=== PATIENT | female | born 1980 | race Caucasian/White ===

== ENCOUNTER 2016-12-30 21:41 | Emergency (ER) | END 2016-12-30 22:59 | disposition home or self-care (01) | DX: G51.0 Bell's palsy (principal); M94.0 Chondrocostal junction syndrome [Tietze]; R40.2412 Glasgow coma scale score 13-15, at arrival to emergency department ==

== ENCOUNTER 2017-04-14 11:08 | Emergency (ER) | payer BC ==
[~2017-04-14] VITALS: Ht 157.5 cm; Wt 100.0 kg
[~2017-04-14 11:08] MED LIST: ACYC800T PO; IBUP-1542 PO; PRED10TA PO; UDROBDM PO
[2017-04-14 11:10] VITALS: Ht 157.5 cm; Wt 100.0 kg
--- NOTE | 2017-04-14 11:48 | ERD ---
ER Documentation Chief Complaint Chief Complaint facial tingling starting yesterday; pt feeling anxious HPI 37y/o male patient with significant medical history,presents to the emergency department c/o facial tingling, palpitations, difficulty breathing and extreme anxiety for the last week. The patient states that she has been under a lot of stress at work and has not been able to exercise. Denies chest pain, fever, chills, N/V/D. Positive history of previous episodes my last episode more than 1 year ago. Treatment attempted: None ROS SYSTEMIC symptoms: no fever, chills, no night sweats, no weight loss EYE symptoms: No blurred vision, no eye discharge OTOLARYNGEAL symptoms: No hearing loss. No ear pain, no sore throat CARDIOVASCULAR symptoms: No chest pain or discomfort, no palpitations. PULMONARY symptoms: No dyspnea, no cough, no wheezing. GASTROINTESTINAL symptoms: No abdominal pain, no nausea, no vomiting, no diarrhea MUSCULOSKELETAL symptoms: No arthralgias, no muscle aches. NEUROLOGY symptoms: No confusion, no syncope, + numbness +tingling. SKIN no rashes All systems reviewed and are negative except as per history of present illness. Medications Home Meds Active Scripts Alprazolam* (Alprazolam*) 0.25 Mg Tablet, 0.25 MG PO TID Y for ANXIETY, #12 TAB Prov:TAI MALIK MD 04/14/17 Acyclovir* (Acyclovir*) 800 Mg Tablet, 800 MG PO 5 TIMES DAILY for 5 Days, TAB Prov:NATHALY JENKINS NP 12/30/16 Prednisone* (Prednisone*) 10 Mg Tab, 60 MG PO DAILY for 10 Days, #40 TAB Take 6 tabs daily x 5 days, then taper: 5 tabs on day 6 4 tabs on day 7 3 tabs on day 8 2 tabs on day 9 1 tab on day 10 Prov:NATHALY JENKINS NP 12/30/16 Ibuprofen* (Motrin*) 600 Mg Tab, 600 MG PO Q6H Y for PAIN AND OR ELEVATED TEMP, #30 TAB Prov:NATHALY JENKINS NP 12/30/16 Guaifenesin-Dextromethorphan* (Robitussin* DM) 100MG/10MG/5ML Syrup, 5 ML PO Q6H Y for COUGH, #120 ML 0 Refills Prov:BAOBEVERLY BILLY 09/27/15 Allergies Allergies: Coded Allergies: No Known Drug Allergy (Unverified Allergy, Unknown, 04/14/17) PMhx/Soc Denies history of DM, HTN, CAD History of Surgery: Yes () Anesthesia Reaction: No Hx Neurological Disorder: No Hx Respiratory Disorders: No Hx Cardiac Disorders: No Hx Psychiatric Problems: No Hx Miscellaneous Medical Probl: No Hx Alcohol Use: No Hx Substance Use: No Hx Tobacco Use: No Smoking Status: Never smoker FmHx Mother with DM and HTN Physical Exam Vitals Vital Signs Date Time Temp Pulse Resp B/P Pulse Ox O2 Delivery O2 Flow Rate FiO2 04/14/17 11:10 97.8 70 18 126/75 97 Physical Exam Patient is in mild distress, she is crying, and looks very anxious, vital signs stable. Alert and fully oriented. EYES: PERRLA, EOMI, Sclera and conjunctiva appear normal. EARS: Canals clear, tympanic membranes WNL THROAT: Normal oropharynx. NECK: Supple, No lymphadenopathy. Full ROM without pain or tenderness. HEART: RRR, no rubs, murmurs, clicks or gallops. LUNGS: Clear to auscultation. ABDOMEN: Soft, non-tender without masses or hepatosplenomegaly. EXTREMITIES: No edema bilaterally. Neuro: Grossly intact, neuro and sensory exam unremarkable Procedures/MDM 37y/o female patient remote history of anxiety, presents to the ED c/o tingling , difficulty sleeping, palpitations that are getting worse progressively during the last 8 days. Vital signs stable, Physical exam unremarkable, neurovascular exam intact. Differential diagnosis include but not limited to: Thyroid disease , electrolyte imbalance, autoimmune disorder, bipolar disease. Low suspicion for stroke, acute coronary event. Physical examination and clinical presentation consistent most likely with anxiety. During the ED course the patient remained stable with no new complaints, therefore the patient can be managed outpatient Results and clinical impression discussed with patient who agrees with management. The patient will be discharged home with a Rx for alprazolam and recommendations for exercise, therapy and follow-up with her primary doctor If symptoms persist, worsen or new symptoms develop, then patient is instructed to follow-up with the primary care provider. If the patient is unable to see the primary care provider, then return to the ED immediately. Departure Diagnosis: Primary Impression: Anxiety Additional Impression: Stressful job Condition: Stable Additional Instructions: Muchas leyda por [facility] para yeung servicio. Esperamos que en yeung visita a la sunny de emergencia yeung problema medico haya sido solucionado y que se sienta mucho mejor. Para estar seguros que yeung mejoria sigue en proceso, le pedimos el favor de hacer belen mayuri de seguimiento medico con yeung doctor primario en los proximos 2-4 dooley. Lleve con usted estos documentos y las medicinas recetadas. Si kurt sintomas empeoran y no puede aba a yeung doctor, por favor regrese a sunny de emergencia. En byron que usted no tenga un mdico de atencin primaria: Llame al mdico o clnica comunitaria de referencia que aparece abajo lois las horas de consultorio para hacer belen mayuri para que le vean. CLINICAS: [facility] [phone] [facility] [phone] [address] [facility]. [facility] [phone] [facility]. [facility] [phone] [facility] [phone] [address] [facility]. [phone] MD Apr 14, 2017 11:48 TAI MALIK MD Apr 14, 2017 11:48
--- NOTE | 2017-04-14 11:48 | ERD ---
ER Documentation Chief Complaint Chief Complaint facial tingling starting yesterday; pt feeling anxious HPI 37y/o male patient with significant medical history,presents to the emergency department c/o facial tingling, palpitations, difficulty breathing and extreme anxiety for the last week. The patient states that she has been under a lot of stress at work and has not been able to exercise. Denies chest pain, fever, chills, N/V/D. Positive history of previous episodes my last episode more than 1 year ago. Treatment attempted: None ROS SYSTEMIC symptoms: no fever, chills, no night sweats, no weight loss EYE symptoms: No blurred vision, no eye discharge OTOLARYNGEAL symptoms: No hearing loss. No ear pain, no sore throat CARDIOVASCULAR symptoms: No chest pain or discomfort, no palpitations. PULMONARY symptoms: No dyspnea, no cough, no wheezing. GASTROINTESTINAL symptoms: No abdominal pain, no nausea, no vomiting, no diarrhea MUSCULOSKELETAL symptoms: No arthralgias, no muscle aches. NEUROLOGY symptoms: No confusion, no syncope, + numbness +tingling. SKIN no rashes All systems reviewed and are negative except as per history of present illness. Medications Home Meds Active Scripts Alprazolam* (Alprazolam*) 0.25 Mg Tablet, 0.25 MG PO TID Y for ANXIETY, #12 TAB Prov:TAI MALIK MD 04/14/17 Acyclovir* (Acyclovir*) 800 Mg Tablet, 800 MG PO 5 TIMES DAILY for 5 Days, TAB Prov:NATHALY JENKINS NP 12/30/16 Prednisone* (Prednisone*) 10 Mg Tab, 60 MG PO DAILY for 10 Days, #40 TAB Take 6 tabs daily x 5 days, then taper: 5 tabs on day 6 4 tabs on day 7 3 tabs on day 8 2 tabs on day 9 1 tab on day 10 Prov:NATHALY JENKINS NP 12/30/16 Ibuprofen* (Motrin*) 600 Mg Tab, 600 MG PO Q6H Y for PAIN AND OR ELEVATED TEMP, #30 TAB Prov:NATHALY JENKINS NP 12/30/16 Guaifenesin-Dextromethorphan* (Robitussin* DM) 100MG/10MG/5ML Syrup, 5 ML PO Q6H Y for COUGH, #120 ML 0 Refills Prov:BAOBEVERLY BILLY 09/27/15 Allergies Allergies: Coded Allergies: No Known Drug Allergy (Unverified Allergy, Unknown, 04/14/17) PMhx/Soc Denies history of DM, HTN, CAD History of Surgery: Yes () Anesthesia Reaction: No Hx Neurological Disorder: No Hx Respiratory Disorders: No Hx Cardiac Disorders: No Hx Psychiatric Problems: No Hx Miscellaneous Medical Probl: No Hx Alcohol Use: No Hx Substance Use: No Hx Tobacco Use: No Smoking Status: Never smoker FmHx Mother with DM and HTN Physical Exam Vitals Vital Signs Date Time Temp Pulse Resp B/P Pulse Ox O2 Delivery O2 Flow Rate FiO2 04/14/17 11:10 97.8 70 18 126/75 97 Physical Exam Patient is in mild distress, she is crying, and looks very anxious, vital signs stable. Alert and fully oriented. EYES: PERRLA, EOMI, Sclera and conjunctiva appear normal. EARS: Canals clear, tympanic membranes WNL THROAT: Normal oropharynx. NECK: Supple, No lymphadenopathy. Full ROM without pain or tenderness. HEART: RRR, no rubs, murmurs, clicks or gallops. LUNGS: Clear to auscultation. ABDOMEN: Soft, non-tender without masses or hepatosplenomegaly. EXTREMITIES: No edema bilaterally. Neuro: Grossly intact, neuro and sensory exam unremarkable Procedures/MDM 37y/o female patient remote history of anxiety, presents to the ED c/o tingling , difficulty sleeping, palpitations that are getting worse progressively during the last 8 days. Vital signs stable, Physical exam unremarkable, neurovascular exam intact. Differential diagnosis include but not limited to: Thyroid disease , electrolyte imbalance, autoimmune disorder, bipolar disease. Low suspicion for stroke, acute coronary event. Physical examination and clinical presentation consistent most likely with anxiety. During the ED course the patient remained stable with no new complaints, therefore the patient can be managed outpatient Results and clinical impression discussed with patient who agrees with management. The patient will be discharged home with a Rx for alprazolam and recommendations for exercise, therapy and follow-up with her primary doctor If symptoms persist, worsen or new symptoms develop, then patient is instructed to follow-up with the primary care provider. If the patient is unable to see the primary care provider, then return to the ED immediately. Departure Diagnosis: Primary Impression: Anxiety Additional Impression: Stressful job Condition: Stable Additional Instructions: Muchas leyda por [facility] para yeung servicio. Esperamos que en yeung visita a la sunny de emergencia yeung problema medico haya sido solucionado y que se sienta mucho mejor. Para estar seguros que yeung mejoria sigue en proceso, le pedimos el favor de hacer belen mayuri de seguimiento medico con yeung doctor primario en los proximos 2-4 dooley. Lleve con usted estos documentos y las medicinas recetadas. Si kurt sintomas empeoran y no puede aba a yeung doctor, por favor regrese a sunny de emergencia. En byron que usted no tenga un mdico de atencin primaria: Llame al mdico o clnica comunitaria de referencia que aparece abajo lois las horas de consultorio para hacer belen mayuri para que le vean. CLINICAS: [facility] [phone] [facility] [phone] [address] [facility]. [facility] [phone] [facility] [facility] [phone] [facility] [phone] [address] [facility]. [phone] MD Apr 14, 2017 11:48 TAI MALIK MD Apr 14, 2017 11:48
--- NOTE | 2017-04-14 11:48 | ERD ---
ER Documentation Chief Complaint Chief Complaint facial tingling starting yesterday; pt feeling anxious HPI 37y/o male patient with significant medical history,presents to the emergency department c/o facial tingling, palpitations, difficulty breathing and extreme anxiety for the last week. The patient states that she has been under a lot of stress at work and has not been able to exercise. Denies chest pain, fever, chills, N/V/D. Positive history of previous episodes my last episode more than 1 year ago. Treatment attempted: None ROS SYSTEMIC symptoms: no fever, chills, no night sweats, no weight loss EYE symptoms: No blurred vision, no eye discharge OTOLARYNGEAL symptoms: No hearing loss. No ear pain, no sore throat CARDIOVASCULAR symptoms: No chest pain or discomfort, no palpitations. PULMONARY symptoms: No dyspnea, no cough, no wheezing. GASTROINTESTINAL symptoms: No abdominal pain, no nausea, no vomiting, no diarrhea MUSCULOSKELETAL symptoms: No arthralgias, no muscle aches. NEUROLOGY symptoms: No confusion, no syncope, + numbness +tingling. SKIN no rashes All systems reviewed and are negative except as per history of present illness. Medications Home Meds Active Scripts Alprazolam* (Alprazolam*) 0.25 Mg Tablet, 0.25 MG PO TID Y for ANXIETY, #12 TAB Prov:TAI MALIK MD 04/14/17 Acyclovir* (Acyclovir*) 800 Mg Tablet, 800 MG PO 5 TIMES DAILY for 5 Days, TAB Prov:NATHALY JENKINS NP 12/30/16 Prednisone* (Prednisone*) 10 Mg Tab, 60 MG PO DAILY for 10 Days, #40 TAB Take 6 tabs daily x 5 days, then taper: 5 tabs on day 6 4 tabs on day 7 3 tabs on day 8 2 tabs on day 9 1 tab on day 10 Prov:NATHALY JENKINS NP 12/30/16 Ibuprofen* (Motrin*) 600 Mg Tab, 600 MG PO Q6H Y for PAIN AND OR ELEVATED TEMP, #30 TAB Prov:NATHALY JENKINS NP 12/30/16 Guaifenesin-Dextromethorphan* (Robitussin* DM) 100MG/10MG/5ML Syrup, 5 ML PO Q6H Y for COUGH, #120 ML 0 Refills Prov:BAOBEVERLY BILLY 09/27/15 Allergies Allergies: Coded Allergies: No Known Drug Allergy (Unverified Allergy, Unknown, 04/14/17) PMhx/Soc Denies history of DM, HTN, CAD History of Surgery: Yes () Anesthesia Reaction: No Hx Neurological Disorder: No Hx Respiratory Disorders: No Hx Cardiac Disorders: No Hx Psychiatric Problems: No Hx Miscellaneous Medical Probl: No Hx Alcohol Use: No Hx Substance Use: No Hx Tobacco Use: No Smoking Status: Never smoker FmHx Mother with DM and HTN Physical Exam Vitals Vital Signs Date Time Temp Pulse Resp B/P Pulse Ox O2 Delivery O2 Flow Rate FiO2 04/14/17 11:10 97.8 70 18 126/75 97 Physical Exam Patient is in mild distress, she is crying, and looks very anxious, vital signs stable. Alert and fully oriented. EYES: PERRLA, EOMI, Sclera and conjunctiva appear normal. EARS: Canals clear, tympanic membranes WNL THROAT: Normal oropharynx. NECK: Supple, No lymphadenopathy. Full ROM without pain or tenderness. HEART: RRR, no rubs, murmurs, clicks or gallops. LUNGS: Clear to auscultation. ABDOMEN: Soft, non-tender without masses or hepatosplenomegaly. EXTREMITIES: No edema bilaterally. Neuro: Grossly intact, neuro and sensory exam unremarkable Procedures/MDM 37y/o female patient remote history of anxiety, presents to the ED c/o tingling , difficulty sleeping, palpitations that are getting worse progressively during the last 8 days. Vital signs stable, Physical exam unremarkable, neurovascular exam intact. Differential diagnosis include but not limited to: Thyroid disease , electrolyte imbalance, autoimmune disorder, bipolar disease. Low suspicion for stroke, acute coronary event. Physical examination and clinical presentation consistent most likely with anxiety. During the ED course the patient remained stable with no new complaints, therefore the patient can be managed outpatient Results and clinical impression discussed with patient who agrees with management. The patient will be discharged home with a Rx for alprazolam and recommendations for exercise, therapy and follow-up with her primary doctor If symptoms persist, worsen or new symptoms develop, then patient is instructed to follow-up with the primary care provider. If the patient is unable to see the primary care provider, then return to the ED immediately. Departure Diagnosis: Primary Impression: Anxiety Additional Impression: Stressful job Condition: Stable Additional Instructions: Muchas leyad por [facility] para yeung servicio. Esperamos que en yeung visita a la sunny de emergencia yeung problema medico haya sido solucionado y que se sienta mucho mejor. Para estar seguros que yeung mejoria sigue en proceso, le pedimos el favor de hacer belen mayuri de seguimiento medico con yeung doctor primario en los proximos 2-4 dooley. Lleve con usted estos documentos y las medicinas recetadas. Si kurt sintomas empeoran y no puede aba a yeung doctor, por favor regrese a sunny de emergencia. En byron que usted no tenga un mdico de atencin primaria: Llame al mdico o clnica comunitaria de referencia que aparece abajo lois las horas de consultorio para hacer belen mayuri para que le vean. CLINICAS: [facility] [phone] [facility] [phone] [address] [facility] [facility] [phone] [address] [facility]. [facility] [phone] [phone] [address] [facility]. [phone] MD Apr 14, 2017 11:48 TAI MALIK MD Apr 14, 2017 11:48
[2017-04-14] MEDS ORDERED: ALPR0.254 PO (12:32)
== END 2017-04-14 12:42 | disposition home or self-care (01) ==
LOC: FTE 11:08
DX: F41.9 Anxiety disorder, unspecified (principal); F43.9 Reaction to severe stress, unspecified
CPT/HCPCS: 99283

== ENCOUNTER 2017-06-10 19:32 | Emergency (ER) | END 2017-06-11 00:52 | disposition home or self-care (01) ==

== ENCOUNTER 2017-12-09 23:00 | Emergency (ER) | END 2017-12-10 02:48 | disposition home or self-care (01) ==

== ENCOUNTER 2018-05-06 10:27 | Emergency (ER) | END 2018-05-06 11:25 | disposition home or self-care (01) ==

== ENCOUNTER 2018-07-29 11:07 | Emergency (ER) | payer BC ==
[~2018-07-29] VITALS: Ht 160 cm; Wt 108.1 kg
[~2018-07-29 11:07] MED LIST changes: +ALPR0.254 PO; +AMOX500C2 PO; +GUAI5SYR2 PO; +LORA10TA3 PO; +NAPR-985 PO; +PRED20TA PO; -UDROBDM PO
[2018-07-29 12:43] VITALS: Ht 160 cm; Wt 108.1 kg
--- NOTE | 2018-07-29 15:55 | ERD ---
ER Documentation Chief Complaint Chief Complaint high BP at MD clinic; nausea, lighthead, bone+nerve pains since Sun. HPI 38-year-old female history of fibromyalgia presents to the ED stating that she was sent here by her primary care physician today. States that she had exacerbation in her fibromyalgia since Thursday. Patient states that she received an epidural today and at that time she felt nauseous and lightheaded, her blood pressure was checked at the clinic and it was 148/108 therefore her PMD sent her here for evaluation. Patient complains of body pain rating it moderate in severity. Denies headache, vision changes ROS All systems reviewed and are negative except as per history of present illness. Medications Home Meds Active Scripts Ibuprofen* (Motrin*) 600 Mg Tab, 600 MG PO Q8, #15 TAB Prov:TAI MALIK MD 05/06/18 Loratadine* (Loratadine*) 10 Mg Tablet, 10 MG PO DAILY, #10 TAB Prov:TAI MALIK MD 05/06/18 Prednisone* (Prednisone*) 20 Mg Tab, 40 MG PO DAILY for 4 Days, TAB Prov:TAI MALIK MD 05/06/18 Amoxicillin* (Amoxicillin*) 500 Mg Cap, 500 MG PO TID for 7 Days, CAP Prov:TAI MALIK MD 05/06/18 Naproxen* (Naprosyn*) 500 Mg Tablet, 500 MG PO BID PRN for PAIN AND/OR INFLAMMATION, #30 TAB Prov:ANAID SORTO PA-C 12/10/17 Ibuprofen* (Motrin*) 600 Mg Tab, 600 MG PO Q6H PRN for PAIN AND OR ELEVATED TEMP, #30 TAB Prov:RIRI PRICE PA-C 06/11/17 Alprazolam* (Alprazolam*) 0.25 Mg Tablet, 0.25 MG PO TID PRN for ANXIETY, #12 TAB Prov:TAI MALIK MD 04/14/17 Acyclovir* (Acyclovir*) 800 Mg Tablet, 800 MG PO 5 TIMES DAILY for 5 Days, TAB Prov:NATHALY JENKINS NP 12/30/16 Prednisone* (Prednisone*) 10 Mg Tab, 60 MG PO DAILY for 10 Days, #40 TAB Take 6 tabs daily x 5 days, then taper: 5 tabs on day 6 4 tabs on day 7 3 tabs on day 8 2 tabs on day 9 1 tab on day 10 Prov:GREGORYNATHALYXI Villarreal NP 12/30/16 Ibuprofen* (Motrin*) 600 Mg Tab, 600 MG PO Q6H PRN for PAIN AND OR ELEVATED TE MP, #30 TAB Prov:NATHALY JENKINS. ROSA 12/30/16 Guaifenesin-Dextromethorphan* (Robitussin* DM) 100MG/10MG/5ML Syrup, 5 ML PO Q6H PRN for COUGH, #120 ML 0 Refills Prov:BEVERLY GORE PA-C 09/27/15 Allergies Allergies: Coded Allergies: No Known Drug Allergy (Unverified Allergy, Unknown, 04/14/17) PMhx/Soc History of Surgery: Yes () Anesthesia Reaction: No Hx Neurological Disorder: No Hx Respiratory Disorders: No Hx Cardiac Disorders: No Hx Psychiatric Problems: No Hx Miscellaneous Medical Probl: No Hx Alcohol Use: No Hx Substance Use: No Hx Tobacco Use: No Physical Exam Vitals Vital Signs Date Temp Pulse Resp B/P (MAP) Pulse Ox O2 O2 Flow FiO2 Time Delivery Rate 07/29/18 97.7 68 22 136/86 100 12:43 (103) Physical Exam Const: No acute distress Head: Atraumatic Eyes: Normal Conjunctiva ENT: Normal External Ears, Nose and Mouth. Neck: Full range of motion. No meningismus. Resp: Clear to auscultation bilaterally Cardio: Regular rate and rhythm, no murmurs Abd: Soft, non tender, non distended. Normal bowel sounds Skin: No petechiae or rashes Back: No midline or flank tenderness Ext: No cyanosis, or edema Neur: Awake and alert Psych: Normal Mood and Affect Procedures/MDM This is a well-appearing 38-year-old female who has a history of fibromyalgia and received an epidural today. Apparently at the clinic her blood pressure has elevated to 148/108 therefore they have sent her here. In triage patient's blood pressure was stable at 136/86. Patient's blood pressure was elevated (>120/80) but appears stable without evidence of hypertension emergency or urgency. The patient was counseled about the risks of hypertension and urged to pursue outpatient monitoring and therapy within a week with their primary care physician. Departure Diagnosis: Primary Impression: Arthralgia Condition: Stable Patient Instructions: High Blood Pressure (Hypertension), Arthralgia Additional Instructions: FOLLOW UP WITH YOUR PRIMARY CARE PHYSICIAN TOMORROW.Return to this facility if you are not improving as expected. Return to this facility if you are not improving as expected. RIRI PRICE PA-C Jul 29, 2018 15:55
== END 2018-07-29 14:20 | disposition home or self-care (01) ==
LOC: FTE 11:07
DX: M25.50 Pain in unspecified joint (principal)
CPT/HCPCS: 99282

== ENCOUNTER 2019-01-06 09:27 | Day surgery (SDC) | payer BC ==
[~2019-01-06] VITALS: Ht 157.5 cm; Wt 99.1 kg
[2019-01-06] VITALS (13 sets, daily range): BP systolic 108–136; BP diastolic 66–84; PULSE 52–78; RESP 12–24; Ht 157.5 cm; Wt 99.1 kg
[~2019-01-06 09:27] MED LIST changes: +BACL10TA PO; +CEFAZOLIN 2 GM/50 ML (PMX) 50 ML IVPB SCH; +DULO30CA47 PO; +GABA-526 PO; +GABA300C16 PO; +MELO15TA30 PO; +OMEP20CA16 PO; +SOD CHLORIDE 0.9% 1,000 ML IV ONE; +SULI200T3 PO; +TIZA4TAB PO
--- NOTE | 2019-01-06 11:03 | PREAC ---
Date/Time of Note Date/Time of Note DATE: 01/06/19 TIME: 11:02 Anesthesia Eval and Record Evaluation Time Pre-Procedure Interview DATE: 01/06/19 TIME: 11:02 Age 38 Sex female NPO: 8 hrs Preoperative diagnosis cholelithiasis Planned procedure laparoscopic cholecystectomy Past Medical History Past Medical History: Includes Musculoskeletal: Other (fibromyalgia) GI: Morbid obesity Surgery & Anesthesia Issues No known issue Meds Anticoagulation: No Beta Alysia within 24 hr: No Reason Beta Alysia not given: Pt. not on B-Alysia Reported Medications Omeprazole* (Omeprazole*) 20 Mg Capsule.dr, 20 MG PO DAILY, #30 CAP 01/06/19 Tizanidine Hcl* (Tizanidine Hcl*) 4 Mg Tablet, 4 MG PO TID PRN for SPASTICITY, TAB 01/06/19 Baclofen* (Baclofen*) 10 Mg Tablet, 10 MG PO QHS, TAB 01/06/19 Gabapentin* (Gabapentin*) 600 Mg Tablet, 600 MG PO QHS, #60 TAB 01/06/19 Gabapentin* (Gabapentin*) 300 Mg Capsule, 300 MG PO TID, #90 CAP 01/06/19 Sulindac* (Clinoril*) 200 Mg Tablet, 200 MG PO BID, TAB 01/06/19 Duloxetine Hcl* (Duloxetine Hcl*) 30 Mg Capsule.dr, 30 MG PO DAILY, #30 CAP 01/06/19 Meloxicam* (Mobic*) 15 Mg Tablet, 15 MG PO DAILY, #30 TAB 01/06/19 Discontinued Scripts Ibuprofen* (Motrin*) 600 Mg Tab, 600 MG PO Q8, #15 TAB Prov:TAI MALIK MD 05/06/18 Loratadine* (Loratadine*) 10 Mg Tablet, 10 MG PO DAILY, #10 TAB Prov:TAI MALIK MD 05/06/18 Prednisone* (Prednisone*) 20 Mg Tab, 40 MG PO DAILY for 4 Days, TAB Prov:TAI MALIK MD 05/06/18 Amoxicillin* (Amoxicillin*) 500 Mg Cap, 500 MG PO TID for 7 Days, CAP Prov:TAI MALIK MD 05/06/18 Naproxen* (Naprosyn*) 500 Mg Tablet, 500 MG PO BID PRN for PAIN AND/OR INFLAMMATION, #30 TAB Prov:ANAID SORTO PA-C 12/10/17 Ibuprofen* (Motrin*) 600 Mg Tab, 600 MG PO Q6H PRN for PAIN AND OR ELEVATED TEMP, #30 TAB Prov:RIRI PRICE PA-C 06/11/17 Alprazolam* (Alprazolam*) 0.25 Mg Tablet, 0.25 MG PO TID PRN for ANXIETY, #12 TAB Prov:TAI MALIK MD 04/14/17 Acyclovir* (Acyclovir*) 800 Mg Tablet, 800 MG PO 5 TIMES DAILY for 5 Days, TAB Prov:NATHALY JENKINS NP 12/30/16 Prednisone* (Prednisone*) 10 Mg Tab, 60 MG PO DAILY for 10 Days, #40 TAB Take 6 tabs daily x 5 days, then taper: 5 tabs on day 6 4 tabs on day 7 3 tabs on day 8 2 tabs on day 9 1 tab on day 10 Prov:NATHALY JENKINS NP 12/30/16 Ibuprofen* (Motrin*) 600 Mg Tab, 600 MG PO Q6H PRN for PAIN AND OR ELEVATED TEMP, #30 TAB Prov:NATHALY JENKINS NP 12/30/16 Guaifenesin-Dextromethorphan* (Robitussin* DM) 100MG/10MG/5ML Syrup, 5 ML PO Q6H PRN for COUGH, #120 ML 0 Refills Prov:BEVERLY GORE PA-C 09/27/15 Current Medications Cefazolin Sodium/ Dextrose 50 ml @ 100 mls/hr PRE-OP IVPB ; Start 01/06/19 at 09:00; Stop 01/06/19 at 15:00 Sodium Chloride 1,000 ml @ 75 mls/hr [id number] ONCE IV Last administered on 01/06/19at 10:36; Admin Dose 75 MLS/HR; Start 01/06/19 at 09:00; Stop 01/06/19 at 22:19 Meds reviewed: Yes Allergies Coded Allergies: No Known Drug Allergy (Unverified Allergy, Unknown, 01/06/19) Allergies Reviewed: Yes Labs/Studies Labs Reviewed: Reviewed by anesthesiologist Result Diagram: 01/06/19 1033 Laboratory Tests 01/06/19 10:33 test: Negative Pre-procedure Exam Last vitals Vital Signs Date Temp Pulse Resp B/P (MAP) Pulse Ox O2 O2 Flow FiO2 Time Delivery Rate 01/06/19 96.6 68 16 133/84 99 Room Air 10:45 (100) Airway: Adequate mouth opening, Adequate thyromental dist Mallampati: Mallampati II Teeth: Normal Lung: Normal Heart: Normal ASA Physical Status ASA physical status: 2 Emergency: None Planned Anesthetic General/MAC: ETT Planned Pain Management Parenteral pain med Pre-operative Attestations Prior to commencing anesthesia and surgery, the patient was re-evaluated, there was verification of: *The patient's identity *The results of appropriate recent lab work and preoperative vital signs *The above evaluation not changing prior to induction *Anesthetic plan, risk benefits, alternative and complications discussed with patient/family; questions answered; patient/family understands, accepts and wishes to proceed. JENY ELIZALDE Jan 06, 2019 11:03
[2019-01-06] MEDS ORDERED: BUPIVACAINE 0.25% (MPF) 30 ML INJ ONE (11:11)
[2019-01-06] MEDS ORDERED: PROPOFOL 100 ML ONE (11:27)
[2019-01-06] MEDS ORDERED: FENTAnyl 50 MCG/ML VIAL ONE (11:32)
[2019-01-06] MEDS ORDERED: LIDOCAINE 2% (SDV) 5 ML INJ ONE (11:34)
[2019-01-06] MEDS ORDERED: CEFAZOLIN 1 GM INJ ONE (11:40)
[2019-01-06] MEDS ORDERED: DEXAMETHASONE 4 MG/ML 5 ML INJ ONE (11:54)
[2019-01-06] MEDS ORDERED: ONDANSETRON 4 MG INJ ONE ×2 (11:54→12:30)
[2019-01-06] MEDS ORDERED: SUGAMMADEX SODIUM 200 MG/2 ML VIAL IV ONE (12:13)
--- NOTE | 2019-01-06 12:19 | OPR ---
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 She required surgical excision of her gallbladder. Risks alternatives benefits and personal were discussed with the patient. Patient expressed understanding and consents to the operation. Procedure Description Patient is taken to the OR and prepped and draped in usual sterile fashion. Surgical time was performed. IV antibiotics given. Infraumbilical transverse incision was made with a 15 blade. Dissection with cautery skin onto the fascia. The fascia was grasped with Oto's and divided with curved Sheth scissors. 0 Vicryl U stitch was placed into the fascia. [place] trocar is introduced. Pneumoperitoneum was established. Midepigastric 12 mm optical trochars placed under direct visualization. Right upper quadrant upper flank 5 mm optical trochars were placed under direct visualization. Upon initial inspection there is adhesions to the gallbladder. The gallbladder adhesions were taken down bluntly. The gallbladder was grasped with the fundus and retracted and lateral and cephalad direction. [place] graspers were used to dissect out the cystic duct and cystic artery. The critical view was established. The cystic duct appeared thickened and was divided with a laparoscopic 35 mm echelon vessel stapler. The staple line was reinforced with clips. Cystic artery was divided to close proximal clip distal and the division was performed laparoscopic scissors. The gallbladder was taken of the gallbladder bed. Good hemostasis status. The gallbladder was retrieved Endo Catch bag. All ports removed under direct visualization. Overdiuresis tied down. Skin is closed and skin jayant. Therapeutic contains local anesthesia was injected at the incision site. Dry dressings were applied. Gwyn SUMNER Jan 06, 2019 12:19
[2019-01-06] MEDS ORDERED: HYDROCODONE/APAP (5/325) TAB PO ONE (12:30)
--- NOTE | 2019-01-06 12:33 | PAC ---
Date/Time of Note Date/Time of Note DATE: 01/06/19 TIME: 12:32 Post-Anesthesia Notes Post-Anesthesia Note Last documented vital signs Vital Signs Date Temp Pulse Resp B/P (MAP) Pulse Ox O2 O2 Flow FiO2 Time Delivery Rate 01/06/19 96.6 68 16 133/84 99 Room Air 1232 (100) Activity: WNL Respiratory function: WNL Cardiovascular function: WNL Mental status: Baseline Pain reasonably controlled: Yes Hydration appropriate: Yes Nausea/Vomiting absent: Yes JENY ELIZALDE Jan 06, 2019 12:33
[2019-01-06] MEDS ORDERED: HYDROmorphONE 1 MG/5 ML IV SYRINGE IV PRN ×3 (13:00)
[2019-01-06] MEDS ORDERED: ALBUTEROL 0.083% (NEB) 2.5 MG/3 ML AMP HHN PRN (13:00)
[2019-01-06] MEDS ORDERED: LABETALOL HCL 20MG INJ IV PRN (13:00)
[2019-01-06] MEDS ORDERED: FENTAnyl 50 MCG/ML VIAL IV PRN ×3 (13:00)
[2019-01-06] MEDS ORDERED: KETOROLAC 30 MG INJ IV PRN (13:00)
[2019-01-06] MEDS ORDERED: METOCLOPRAMIDE 10 MG INJ IV PRN (13:00)
[2019-01-06] MEDS ORDERED: hydrALAzine 20 MG INJ IV PRN (13:00)
[2019-01-06] MEDS ORDERED: EPHEDrine 25 MG/5 ML SYG IV PRN (13:00)
[2019-01-06] MEDS ORDERED: DIPHENHYDRAMINE 50 MG INJ IV PRN (13:00)
[2019-01-06] MEDS ORDERED: MEPERIDINE 25 MG INJ IV PRN (13:00)
[2019-01-06] MEDS ORDERED: OXYCODONE/ACETAMINOPHEN (5/325) TAB PO PRN ×2 (13:00)
[2019-01-06] MEDS ORDERED: ONDANSETRON 4 MG INJ IV PRN (13:00)
== END 2019-01-06 14:00 | disposition home or self-care (01) ==
LOC: SDS 09:27
PROVIDERS: ATTEND Surgery
DX: K80.10 Calculus of gallbladder with chronic cholecystitis without obstruction (principal); M79.7 Fibromyalgia; E66.01 Morbid (severe) obesity due to excess calories
CPT/HCPCS: 47562; 80053; 84703; 85025; 85610; 85730; 88304; J0690; J1100; J1170; J1885; J2405; J3010; Z7512; Z7610